=== PATIENT | female | born 1940 | race Caucasian/White ===

== ENCOUNTER 2017-02-21 00:46 | Inpatient (IN) | payer OTHER, MEDICARE ==
[~2017-02-21] VITALS: Ht 165.1 cm; Wt 95.3 kg
[2017-02-21] VITALS (7 sets, daily range): BP systolic 148–199; BP diastolic 79–93
--- NOTE | ~2017-02-21 | EKG ---
[address] [place] [address] ELECTROCARDIOGRAM REPORT Name: EVGENYROMI DELL Room #: 463- ADM IN M.R.#: [id number] Admission: 02/21/17 Attend Phys: Andrei Espinal MD Discharge: Date of : 42 Report #: [id number] THIS REPORT FOR: //name// [facility] ED Test Date: 2017-02-21 Test Time: 01:22:52 Pat Name: ROMI PEPPER Department: Room: 463 Gender: F Foot Specialist: jerod : 1940 Requested By: Nan Summers Order Number: [id number] MD: Leandro Pritchett Measurements Intervals [place] Rate: 52 P: 24 NV: 174 QRS: -7 QRSD: 96 T: 7 QT: 433 QTc: 403 Interpretive Statements Sinus rhythm Borderline T wave abnormalities Baseline wander in lead(s) I,III,aVL,aVF Compared to ECG 11/27/2014 14:45:19 no significant changes Electronically Signed On 02-21-2017 12:57:54 CDT by Leandro Pritchett [email or web address] <ELECTRONICALLY SIGNED> By: Leandro Pritchett MD, [facility] 02/21/17 1257 0122 0122 Leandro Pritchett MD, [facility] /EPI
--- NOTE | ~2017-02-21 | HC ---
[facility] [place] [address] CONSULTATION Name: ROMI PEPPER Room #: 463-P [facility] IN M.R.#: [id number] Admission: 02/21/17 Attend Phys: Boris Owens DO Discharge: Date of : 42 Report #: [id number] THIS REPORT FOR: //name// CC: Ananth Owens DATE OF SERVICE: 02/22/2017 HISTORY OF PRESENT ILLNESS: The patient is a 76-year-old white female who was admitted with mental status changes. She was found on the floor by her . She has had a CT scan with suspected left occipital stroke. Admission diagnosis is acute to subacute CVA. MRI of the brain is pending. We are seeing her in rehabilitation medicine consultation. PAST MEDICAL HISTORY: Includes insulin-dependent diabetes mellitus; COPD, 3 liters premorbidly, although she notes she does not like to take it; gastric bypass; hysterectomy; lumbar diskectomy with fusion; hypertension; atrial fibrillation; migraines; dyslipidemia; osteoarthritis; stents to the circumflex in 2010; stent to the LAD 02/11/2013; frequent falls 2012; left total knee replacement 11/21/2013; fibromyalgia. ALLERGIES: CODEINE, IODINE, MORPHINE, PENICILLIN. HABITS: No history of tobacco or ETOH abuse. SOCIAL HISTORY: Lives at home with her spouse. 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 Noted to be on 2-3 liters nasal prong O2 at home, although she is not on oxygen here currently. She has an O2 sat of 95% actually on room air. REVIEW OF SYSTEMS: Did not offer any current complaints of chest pain, shortness of breath or abdominal discomfort. No focal complaints of extremity pain. Denied any focal weakness per se. PHYSICAL EXAMINATION: GENERAL: A 76-year-old obese white female in no obvious distress. VITAL SIGNS: Last recorded temperature 98, pulse 71, respirations 22, and blood pressure 144/70. NEUROLOGIC: She is alert, rather cantankerous. Facies appeared to be symmetric. She may have some left upper and lower extremity coordination difficulties compared to the right. Strength is probably a grade 4 to 4-/5 both upper and lower extremities. Tone appeared to be intact. There is some definite slowing as far as her cognitive processing, and I questioned her safety judgment and insight. [address] [address] CONSULTATION Name: ROMI PEPPERJana Room #: 463-P [facility] IN .R.#: [id number] Admission: 02/21/17 Attend Phys: Boris Owens DO Discharge: Date of : 42 Report #: [id number] ASSESSMENT: A 76-year-old white female with the following problem list: 1. Mental status change with CT scans suspicious for a left occipital stroke. Stroke workup underway with Neurology involvement. 2. Dyslipidemia. 3. Insulin-dependent diabetes mellitus. 4. Obesity with prior gastric bypass. 5. Chronic obstructive pulmonary disease. 6. Hypertension. 7. Atrial fibrillation. 8. Lumbar diskectomy with fusion. 9. Stent to LAD. 10. Prior history of frequent falls. 11. Prior left total knee replacement in 2013. PLAN: Neuro workup is underway. Therapy evaluations are underway. We will be glad to follow along with you regarding her rehab therapy needs. <ELECTRONICALLY SIGNED> By: Gregorio Barajas MD 02/23/17 1523 1139 2207 Gregorio Barajas MD /nt
--- NOTE | ~2017-02-21 | EEG ---
[facility] [place] [address] ELECTROENCEPHALOGRAM Name: ROMI PEPPER Room #: 463-P ADM IN M.R.#: [id number] Admission: 02/21/17 Attend Phys: Boris Owens DO Discharge: Date of : 42 Report #: [id number] THIS REPORT FOR: //name// CC: Ananth Owens DATE OF SERVICE: 02/22/2017 This patient is being evaluated for altered mental status. EEG was done by placing the electrodes by standard 10-20 system of electrode placement. Both referential and sequential montages were used for recording. Background activity in this patient's EEG is about 10 Hz and 30-40 microvolt. The patient does become drowsy that is associated with bilateral slowing. This patient's EEG demonstrated pretty significant epileptiform activity arising from the left cerebral hemisphere. It does not have the regularity of the periodic lateralized epileptiform discharges. Photic stimulation is unremarkable. IMPRESSION: This is a significantly abnormal EEG, which demonstrated pronounced epileptiform activity arising from the left cerebral hemisphere. This patient should be urgently worked up to determine any etiology for the seizures arising from the left cerebral hemisphere and appropriately treated as clinically indicated. Finding was conveyed to , the neurologist covering this patient who will arrange this workup urgently. Thank you very much for this referral. By: 1804 1854 MD kaitlin Austin
[~2017-02-21 00:46] MED LIST: ACETAMINOPHEN325 M1 PO; ADULT LOW DOSE81 MG PO; ADVAIR HFA 1112 UNIT INH; ALLOPURINOL 10100 M1 PO; ASPIRIN325 PO; ATORVASTATIN CA40 MG PO; B12INJ SUBQ; CARDIZEM CD 18180 M3 PO; CARDIZEM CD180 MG PO; CIPROFLOXACIN250 M2 PO; COUMADIN 1MG TAB1 M1 PO; DEMADEX20 MG PO; DOCUSATE SODIU100 MG PO; DUONEB 2.5-0.5 M3 ML INH; EFFIENT10 MG PO; EFFIENT5 MG PO; FIORINAL 50-321 EACH PO; FIORINAL CAPSUL1 CA1 PO; HYDROCODON-ACE1 EAC7 PO; IRON325 PO; LANTUS SC; LEVEMIR SUBQ; MEDROL DOSPAK21 TA1 PO; MICONAZOLE NITR45 GM VAG; NITROGLYCERIN1 EAC1 TRANSDERM; NITROSTAT0.4 MG PO; NORCO 10-325 T1 EACH PO; NORCO 7.5-3251 EACH PO; NOVOLOG100 UNIT/1 SUBQ; PACERONE 200 M200 M1 PO; PRAVASTATIN SOD20 MG PO; PRINIVIL10 MG PO; PRINZIDE 20-251 EACH PO; SENNA-LAX8.6 MG PO; SPIRIVA INH; ULTRAM 50MG TAB50 MG PO; VALIUM2 MG PO; VALIUM5 MG PO; VICODIN; XARELTO15 MG PO; ZOFRAN4 MG PO
[2017-02-21 01:35] LABS: URINE BILIRUBIN NEGATIVE (Negative); URINE BLOOD TRACE (Negative); URINE COLOR YELLOW; URINE GLUCOSE-RANDOM* NEGATIVE (Negative); URINE KETONES TRACE (Negative); URINE LEUKOCYTES-REFLEX NEGATIVE (Negative); URINE PROTEIN (DIPSTICK) NEGATIVE (Negative); URINE UROBILINOGEN 0.2 E.U./dl (0.2-1.0)
[2017-02-21 01:39] LABS: ABSOLUTE NEUTROPHILS 9.8 thou/uL (1.4-8.2); BASOPHILS 0.4 % (0.0-2.0); EOSINOPHILS 0.1 % (0.0-3.0); HEMATOCRIT 42.8 % (37.0-47.0); HEMOGLOBIN 14.4 gm/dL (12.0-15.0); LYMPHOCYTES 10.1 % (24.0-44.0); MANUAL DIFF NO; MCH 30.4 pg (26.0-34.0); MCHC 33.7 g/dL (28.0-37.0); MCV 90.3 fL (80.0-100.0); PLATELET COUNT 166 thou/uL (150-400); POLYS 85.4 % (36.0-66.0); RBC 4.73 mil/uL (4.20-5.00); RDW 13.9 % (10.5-14.5); WBC 11.4 thou/uL (4.0-11.0)
[2017-02-21 01:40] LABS: CALCIUM 9.1 mg/dL (8.5-10.1); CREATININE 0.9 mg/dL (0.6-1.0); POTASSIUM 3.6 mmol/L (3.5-5.1)
[2017-02-21 01:43] LABS: ABG COMMENT ROOM AIR; ABG SAMPLE TYPE ARTERIAL; BE(vivo) 2.2 mmol/L (-2 to +3); HCO3 25.6 mmol/L (22.0-26.0); LACTATE 1.65 mmol/L (0.5-2.0); O2(CT) 19.7 mL/dL (15.0-23.0); O2Hb 94.6 % (92.0-98.0); PO2 75.4 mmHg (80.0-100.0); STICK SITE R.RADIAL; pH 7.469 (7.360-7.450); sO2 95.9 % (92.0-98.0); tCO2 26.7 mmol/L (24.0-30.0)
[2017-02-21 02:30] LABS: APTT 25.7 Seconds (24.5-32.8); INR 1.1; PROTIME 11.3 Seconds (9.3-11.4)
[2017-02-21 05:36] LABS: CHOLESTEROL 226 mg/dL (<200); HDL CHOLESTEROL 48 mg/dL (>40); LDL CHOLESTEROL 146 mg/dL (<100); TC:HDL 4.7 Ratio (Not establshd); TRIGLYCERIDE 160 mg/dL (<150); VLDL 32 mg/dL (<40)
[2017-02-21 05:43] LABS: SERUM ASSESSMENT Clear
[2017-02-21 22:32] LABS: TSH 1.102 uIU/mL (0.358-3.740)
[2017-02-22 03:15] VITALS: BP 115/101
[2017-02-22 03:52] LABS: HEMATOCRIT 43.7 % (37.0-47.0); MCH 30.8 pg (26.0-34.0); MCHC 34.3 g/dL (28.0-37.0); MCV 89.9 fL (80.0-100.0); RBC 4.86 mil/uL (4.20-5.00); WBC 10.4 thou/uL (4.0-11.0)
[2017-02-22 04:17] LABS: CALCIUM 8.9 mg/dL (8.5-10.1); MAGNESIUM 1.7 mg/dL (1.8-2.4)
[2017-02-22 04:29] LABS: POTASSIUM 2.9 mmol/L (3.5-5.1)
[2017-02-22 07:29] VITALS: BP 144/70
[2017-02-22 12:05] VITALS: BP 138/80
[2017-02-22 16:11] LABS: MAGNESIUM 1.9 mg/dL (1.8-2.4); POTASSIUM 3.9 mmol/L (3.5-5.1)
[2017-02-22 16:54] VITALS: BP 150/56
[2017-02-22 19:12] LABS: GLYCOHEMOGLOBIN (HGB A1C) 5.1 % (4.8-5.6)
[2017-02-22 20:32] VITALS: BP 161/100
[2017-02-22 23:18] VITALS: BP 146/88
[2017-02-23] VITALS (7 sets, daily range): BP systolic 110–177; BP diastolic 74–85
[2017-02-23] MEDS ORDERED: CLOPIDOGREL75 MG PO (13:18)
[2017-02-23] MEDS ORDERED: KEPPRA 500 MG500 M1 PO (13:18)
[2017-02-25 01:11] LABS: ALPHA TOCOPHEROL 13.1 mg/L (6.5-21.5)
== END 2017-02-23 15:48 | disposition home health service (06) | DRG 64 ==
LOC: ER 00:46 → EROBS 03:49 → 4W 03:49
PROVIDERS: Emergency Medicine; Family Medicine; Nurse Practitioner; Psychiatry & Neurology Neurology
DX: I63.9 Cerebral infarction, unspecified (principal); G92 Toxic encephalopathy; I16.1 Hypertensive emergency; J44.9 Chronic obstructive pulmonary disease, unspecified; I10 Essential (primary) hypertension; G43.909 Migraine, unspecified, not intractable, without status migrainosus; I48.91 Unspecified atrial fibrillation; E78.5 Hyperlipidemia, unspecified; M19.90 Unspecified osteoarthritis, unspecified site; Z96.652 Presence of left artificial knee joint; I25.10 Atherosclerotic heart disease of native coronary artery without angina pectoris; E11.42 Type 2 diabetes mellitus with diabetic polyneuropathy; Z77.22 Contact with and (suspected) exposure to environmental tobacco smoke (acute) (chronic); M10.9 Gout, unspecified; M79.7 Fibromyalgia; R26.81 Unsteadiness on feet; E66.9 Obesity, unspecified; R56.9 Unspecified convulsions; R53.81 Other malaise; Z88.8 Allergy status to other drugs, medicaments and biological substances; Z88.0 Allergy status to penicillin; Z98.84 Bariatric surgery status; Z90.710 Acquired absence of both cervix and uterus; Z95.5 Presence of coronary angioplasty implant and graft; Z68.34 Body mass index [BMI] 34.0-34.9, adult; Z88.6 Allergy status to analgesic agent; Z91.041 Radiographic dye allergy status
CPT/HCPCS: 10045

== ENCOUNTER 2019-12-11 13:25 | Inpatient (IN) | payer OTHER, MEDICARE ==
[~2019-12-11] VITALS: Ht 160 cm; Wt 77.1 kg
--- NOTE | ~2019-12-11 | HC ---
[facility] [place] [address] CONSULTATION Name: ROMI PEPPER Room #: 454-P [facility] IN M.R.#: [id number] Admission: 12/11/19 Attend Phys: Donnell Leung MD Discharge: 12/22/19 Date of : 42 Report #: [id number] THIS REPORT FOR: cc: Ananth Tapia MD,Dion Artis MD DO ~ CC: Ananth Leung DATE OF SERVICE: 12/22/2019 PALLIATIVE CARE CONSULTATION REQUESTING PHYSICIAN: Dr. Lopez. CHIEF COMPLAINT: Delirium. HISTORY OF PRESENT ILLNESS: The patient is a 79-year-old female who presented initially with altered mental status, delirium, severe spinal stenosis, subsequently found with radicular symptoms. She had a T12 compression fracture, which is likely a significant origin of this. This compression fracture is not amenable to surgery. Unfortunately, the patient has reported initially that she has wanted to go home. We recommended through therapy that she had some sort of rehab due to her decision making process. There was a possibility that she might be interested in palliative care type option. PAST MEDICAL HISTORY: T12 compression fracture, chronic cerebral infarcts, chronic hypoxic respiratory failure, COPD, type 2 diabetes, hypertension. FAMILY HISTORY: Noncontributory. ALLERGIES: PENICILLIN, IODINE, MORPHINE, CODEINE. MEDICATIONS: Lantus, gabapentin, dexamethasone, Humalog, [place], Lipitor, heparin, potassium, lisinopril, Cardizem, Plavix, aspirin, amiodarone, allopurinol, Keppra. SOCIAL HISTORY: Living at home alone; however, she reports significant support from neighbors including neighbors that helped her to clean her home and cook for her as well. REVIEW OF SYSTEMS: GENERAL: She denies fevers or chills. RESPIRATORY: Denies shortness of breath currently. CARDIOVASCULAR: Denies chest pain. MUSCULOSKELETAL: Does report back pain, which is her most significant problem, [facility] [address] [place] [address] CONSULTATION Name: [facility]: [facility]-P [facility] IN M.R.#: [id number] Admission: 12/11/19 Attend Phys: Donnell Leung MD Discharge: 12/22/19 Date of : 42 Report #: [id number] although pain is minimal at rest currently. PHYSICAL EXAMINATION: VITAL SIGNS: Temperature 36.3, pulse 63, respirations 16, blood pressure 147/62. GENERAL: The patient appears to be alert. She is oriented to 3. She is in no acute distress. HEENT: Extraocular muscles appear to be intact. Normocephalic and atraumatic. No scleral icterus. No conjunctival injection noted. CARDIOVASCULAR: Appears to be regular rate and rhythm. No significant edema. RESPIRATORY: No tachypnea, no wheezing appreciated. No respiratory distress. ABDOMEN: No distention. ASSESSMENT AND PLAN: 1. T12 compression fracture with this and her concern for repeat fall, there is a concern that the patient may not be safe for home setting; however, she understands the potential barriers to home placement. She additionally understands the risks of home placement. The patient is significantly favoring going home despite these knowledge of these risks. She is amenable to having home health, but however, not amenable to a skilled therapy either inpatient or outpatient. Unfortunately, despite encouragement, patient is currently sticking with this plan. She is not interested in palliative care options at this time, not interested in changing her code status. 2. Delirium, appears to be improved overall on this. 3. Spinal stenosis. Appreciate Neurosurgery input on this. Thank you very much for this consultation. Please consult me again if I can be of any assistance with regards to this patient's care. By: 1616 1816 Dion Cruz DO /nt
[~2019-12-11 13:25] MED LIST changes: +CLOPIDOGREL75 MG PO; +KEPPRA 500 MG500 M1 PO
[2019-12-11 13:26] VITALS: BP 173/66
[2019-12-11 13:45] LABS: ABSOLUTE NEUTROPHILS 4.2 thou/uL (1.4-8.2); BASOPHILS 0.3 % (0.0-2.0); EOSINOPHILS 0.6 % (0.0-3.0); HEMATOCRIT 40.7 % (37.0-47.0); HEMOGLOBIN 13.4 gm/dL (12.0-15.0); LYMPHOCYTES 23.3 % (24.0-44.0); MCH 31.2 pg (26.0-34.0); MCHC 32.9 g/dL (28.0-37.0); MCV 94.8 fL (80.0-100.0); MONOCYTES 6.5 % (1.0-8.0); PLATELET COUNT 170 thou/uL (150-400); POLYS 69.3 % (36.0-66.0); RDW 14.2 % (10.5-14.5); WBC 6.1 thou/uL (4.0-11.0)
[2019-12-11 13:52] LABS: ANION GAP 11 mmol/L (7-16); BUN 16 mg/dL (7-18); CALCIUM 8.4 mg/dL (8.5-10.1); CHLORIDE 109 mmol/L (98-107); CO2 22 mmol/L (21-32); GLUCOSE 79 mg/dL (74-106); SODIUM 142 mmol/L (136-145)
[2019-12-11 14:02] LABS: ALBUMIN 3.2 g/dL (3.4-5.0); SGOT 20 U/L (15-37); SGPT 10 U/L (30-65); TOTAL BILIRUBIN 0.7 mg/dL (<0.1-1.0); TOTAL PROTEIN 6.3 g/dL (6.4-8.2); TROPONIN-I <0.06 ng/mL (<0.06)
[2019-12-11 14:04] LABS: POTASSIUM 2.9 mmol/L (3.5-5.1)
[2019-12-11 14:12] LABS: URINE BLOOD 1+ (Negative); URINE CLARITY CLOUDY; URINE COLOR YELLOW; URINE GLUCOSE-RANDOM* NEGATIVE (Negative); URINE KETONES 1+ (Negative); URINE PROTEIN (DIPSTICK) 1+ (Negative); URINE SPECIFIC GRAVITY >= 1.030 (1.005-1.035)
[2019-12-11 14:13] LABS: ICTOTEST (BILI CONFIRMATORY) Negative (Negative); URINE BILIRUBIN NEGATIVE (Negative); URINE LEUKOCYTES-REFLEX 1+ (Negative); URINE NITRITE-REFLEX POSITIVE (Negative)
[2019-12-11 14:40] LABS: BACTERIA-REFLEX >30 Many /HPF (None Seen); SQUAMOUS 0-3 Few /LPF (0-3); URINE RBC 3-10 Few /HPF (0-2); URINE WBC-REFLEX >25 Many /HPF (0-5)
[2019-12-11 14:41] LABS: CASTS None Seen /LPF (None Seen); CRYSTALS None Seen /LPF (None Seen)
[2019-12-11 18:14] LABS: MAGNESIUM 1.8 mg/dL (1.8-2.4)
[2019-12-11 18:36] VITALS: BP 131/53
[2019-12-12 00:04] VITALS: BP 104/77
--- NOTE | 2019-12-12 04:27 | NUR ---
PT WAS AN ER ADMIT AT SHIFT CHANGE. NO FAMILY AT BEDSIDE. PT WAS ADMITTED A RESULT OF FALL, AND ALSO NOTED TO HAVE UTI. PT IS ALERT, BUT FORGETFUL AND CONFUSED. ADMISSION ASSESSMENT AND EDUCATION COMPLETED WITH PATIENT.SHE WAS ABLE TO ANSWER A FEW QUESTIONS. HYPOGYLCEMIA NOTED UPON ADMISSION. FALL PRECAUTION IN PLACE. CALL LIGHT WITHIN REACH. SCHEDULED MEDS ADMINISTERED TO PT. PT TOLERATED PO INTAKE. PT COMPLIANS OF A HEADACHE. CONTINUE TO MONITOR PATIENT.
[2019-12-12 04:38] VITALS: BP 125/60
--- NOTE | 2019-12-12 08:20 | EKG ---
[facility] [place] [address] ELECTROCARDIOGRAM REPORT Name: ROMI PEPPER Room #: 454-P ADM IN M.R.#: [id number] Admission: 12/11/19 Attend Phys: Donnell Leung MD Discharge: Date of : 42 Report #: [id number] THIS REPORT FOR: cc: Ananth Tapia MD, Eric K. MD Couchonnal, Luis F. 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 : 1940 Requested By: Nona Hawkins Order Number: [id number] MD: Pepito Cisneros Measurements Intervals [place] Rate: 48 P: 64 [place]: 172 QRS: -21 QRSD: 120 T: 9 QT: 543 QTc: 486 Interpretive Statements Sinus bradycardia Multiple ventricular premature complexes Probable left ventricular hypertrophy Borderline T abnormalities, anterior leads Compared to ECG 02/21/2017 01:22:52 Ventricular premature complex(es) now present Sinus rhythm no longer present T-wave abnormality still present Electronically Signed On 12-12-2019 8:18:44 BOILER RELINER by Pepito Cisneros [email or web address] <ELECTRONICALLY SIGNED> By: Pepito Cisneros MD 12/12/19 0818 1339 1339 Pepito Cisneros MD /EPI
[2019-12-12 08:30] VITALS: BP 150/64
[2019-12-12 15:30] VITALS: BP 133/76
[2019-12-12 16:42] LABS: CALCIUM 8.2 mg/dL (8.5-10.1); CREATININE 1.1 mg/dL (0.6-1.0)
[2019-12-12 16:45] LABS: POTASSIUM 2.7 mmol/L (3.5-5.1)
--- NOTE | 2019-12-12 16:53 | NUR ---
INITIAL ASSESSMENT: Received consult. PIERRE reviewed chart and spoke with nursing and attending physician. Pt was admitted from home after a fall. Pt's family found her down in her home. Pt was transferred to from [facility] earlier today. PIERRE met with pt at bedside. Introduced role of SW. Pt is alert/orientated to self only. Pt unable to state name of hospital. Per pt, she lives at home alone. Pt states she has home health workers that come in to see her throughout the day. Pt reports that she has a cane, walker and scooter at home. Per chart, pt has been to [facility] in the past. Pt unable to recall if she has been in rehab or SNF in the past. Pt's PCP is Dr. Ananth Tapia. SW asked to contact her family to provide update. Pt requested PIERRE to call her dtr in law, Mabel. PIERRE left voice message for Mabel ([phone]). Therapies are ordered to evaluate pt for discharge needs. Pt would most likely benefit from post-acute care. PIERRE is following to assist as needed with discharge planning.
[2019-12-12 19:37] VITALS: BP 116/59
--- NOTE | 2019-12-12 20:13 | NUR ---
Received patient from [facility], transferred to bed safely. High risk for falls- falls bundle in place. A+Ox2, on seizure precaution. Complained of pain, due PRN pain medication given as prescribed. Vital signs stable. With SL on L AC- intact and flushing well. On blood sugar monitoring taken and recorded accordingly. No family member at the bedside, as per previous nurse, forms needs to be signed by DPOA. Able to use the bedside commode with standby assist and gait belt. Assisted in eating and drinking. Able to sit out on the chair during the day shift. Pt with critical value of potassium this afternoon of 2.7, Dr Leung informed and orders obtained for 20meq KCL PO now then at 2200 then BID starting tomorrow- orders placed. Pt's son called for update- given; they said that pt's insurance card and license were not returned to them during transport of EMT or admission, informed her that pt got transferred this AM from [facility] and there were no report for the ID cards, informed her that I try to check her IDs if time permits- bonderizer nurse informed re: IDs- will try to look for it. CM seen patient and assessed her this afternoon re: placement of home needs. To continue monitoring patient.
--- NOTE | 2019-12-13 03:02 | NUR ---
PROGRESS PT ALERT BUT CONFUSED. C/O PAIN TO BACK ARMS AND HEAD, BRUISING NOTED TO LOWER BACK ARMS AND SHOULDERS. NO OPEN AREAS NOTED REMAINDER OF SKIN IS C/D/I. SALINE LOCK TO LAC FLUSHES WITHOUT DIFFICULTY. UP WITH 1 GB AND WALKER. ACCUCHECKS AND SSI CONTINUE. POTASSIUM 2.7 THIS AM 20 MEQ'S ORDERED BID GIVEN ORDERED. WEARS 3 LITERS O2 PRN SATS AT 96% ON ROOM AIR. TAKING TRAMADOL PRN FOR C/O LOWER BACK PAIN. CONTINUE TO MONITOR.
[2019-12-13 05:34] LABS: HEMATOCRIT 36.1 % (37.0-47.0); HEMOGLOBIN 11.9 gm/dL (12.0-15.0); MCH 31.1 pg (26.0-34.0); MCHC 32.9 g/dL (28.0-37.0); MCV 94.4 fL (80.0-100.0); RBC 3.83 mil/uL (4.20-5.00); RDW 14.9 % (10.5-14.5); WBC 5.4 thou/uL (4.0-11.0)
[2019-12-13 06:16] LABS: CALCIUM 8.2 mg/dL (8.5-10.1); CREATININE 0.9 mg/dL (0.6-1.0); MAGNESIUM 1.8 mg/dL (1.8-2.4)
[2019-12-13 07:35] VITALS: BP 137/73
[2019-12-13 14:55] VITALS: BP 136/67
--- NOTE | 2019-12-13 16:33 | NUR ---
CM CALLED AND FOLLOWED UP WITH PT'S DTR IN LAW [facility]. SHE INDICATED THAT PT HAD BEEN LIVING ALONE IN A HOUSE BILLET HEATER. SHE STATED THAT PT HAS ALL REPORTED DME BUT THAT SHE HADN'T USED IT CONSISTANTLY BILLET HEATER. SHE INDICATED THAT PT DOESN'T HAVE CAREGIVERS WHO CHECK ON HER DAILY THAT JUST SHE AND HER SPOUSE DO. SHE STATED THAT PT'S SPOUSE PASSED LAST . SHE HAD INDICATED THAT PT HAD UTI LIKE THIS 3 YEARS AGO AND THAT PT'S CONFUSION CLEARED. CM SPOKE WITH THEM ABOUT [facility] ACUTE INPATIENT REHAB. DTR IN LAW INDICATED THAT THEIR GOAL WOULD BE FOR PT TO CLEAR AND BE ABLE TO RETURN HOME WITH HH SERVICES AND INCREASED FAM SUPPORT FROM SON, DTR IN LAW, AND GSON. CM TO FOLLOW INDICATED WITH DC PLANNING.
--- NOTE | 2019-12-13 16:46 | NUR ---
PT ALERT AND ORIENTED TIMES THREE WITH SOME CONFUSION. VSS. PT C/O BACK PAIN PRN MEDICATIONS GIVEN WITH SOME RELEIF. PT TOLERATES MEDS AND MEALS. PT UP WITH STAND BY ASSSIT. PT SLOWLY PROGRESSING TOWRADS POC GOALS.
[2019-12-13 20:07] VITALS: BP 133/71
--- NOTE | 2019-12-14 04:30 | NUR ---
PROGRESS PT ALERT AND AWAKE. CONFUSED AND TALKING TO PEOPLE WHO ARE NOT THERE, ATTEMPTED TO REORIENT AND SHE BECAME ANGRY. VSS, UP WITH 1 AND A WALKER TO BSC. VOIDING QS. VSS SKIN, CLEAN, DRY, AND, INTACT. ACCUCHECKS AND SSI CONTINUE. PT HAS A GOOD APPETITE AND ADEQUATE PO INTAKE. AWAITING SNF PLACEMENT.
[2019-12-14 07:45] VITALS: BP 128/82
--- NOTE | 2019-12-14 10:26 | NUR ---
Received awake, sitting on chair. On room air- saturating on 99%. Vital signs stable. A+O to self, pt confused, re-oriented from time to time and gets angry if re-oriented. On carb controlled diet- tolerating well, encouraged to eat and drink- no nausea, no vomiting and no abdominal pain noted. On blood sugar monitoring- taken and recorded accordingly. With SL at L AC- intact and wrapped with Cob[place]. Complained of pain, due PRN pain medications given as prescribed. Pt cried this morning saying that her son and daughter in law does not know where she is- informed pt that they are both aware that she is in the hospital and which room number she is in, they have been calling pt and nurse for updates- pt calmed down. Falls bundle in place. Assisted in ADLs.
--- NOTE | 2019-12-14 16:49 | NUR ---
CM FOLLOWED UP WITH PT'S DTR IN LAW AND INDICATED THAT PT HAS BEEN REFUSING THERAPIES. SHE INIDCATED TO CARE TEAM THAT THEY WERE INTERESTED IN ACUTE REHAB STAY BUT THAT [facility] WOULDN'T BE ABLE TO ACCEPT PT IF SHE DOESN'T PARTICIPATES AND ISN'T WILLING TO DO THERPIES. SHE WAS AWARE AND UNDERSTANDING THAT PT WOULD HAVE TO DC HOME WITH HH IF SHE WON'T PARTICIAPTE. CM TO FOLLOW INDICATED WITH DC PLANNING.
[2019-12-14 16:58] VITALS: BP 153/97
[2019-12-14 19:15] VITALS: BP 101/57
[2019-12-14 22:46] LABS: URINE BILIRUBIN NEGATIVE (Negative); URINE BLOOD NEGATIVE (Negative); URINE CLARITY CLEAR; URINE COLOR YELLOW; URINE GLUCOSE-RANDOM* NEGATIVE (Negative); URINE KETONES NEGATIVE (Negative); URINE LEUKOCYTES-REFLEX NEGATIVE (Negative); URINE NITRITE-REFLEX NEGATIVE (Negative); URINE PROTEIN (DIPSTICK) NEGATIVE (Negative); URINE SPECIFIC GRAVITY 1.025 (1.005-1.035); URINE UROBILINOGEN 0.2 E.U./dl (0.2-1.0)
--- NOTE | 2019-12-15 02:42 | NUR ---
Assumed pt care @191. pt a&ox2. confused and forgetful. pt refused all night times meds and accu check. pt has been sleeping well with only bathroom interruptions where she will go right back to sleep after. 1 assist with a walker to the bathroom. UA collected and pt is negative for the uti. no major concerns overnight. v/s stable. no s/s of distress. will cont to monitor
[2019-12-15 06:40] LABS: ABSOLUTE NEUTROPHILS 3.6 thou/uL (1.4-8.2); BASOPHILS 0.2 % (0.0-2.0); EOSINOPHILS 2.1 % (0.0-3.0); HEMATOCRIT 37.9 % (37.0-47.0); HEMOGLOBIN 12.3 gm/dL (12.0-15.0); LYMPHOCYTES 24.6 % (24.0-44.0); MCH 30.9 pg (26.0-34.0); MCHC 32.6 g/dL (28.0-37.0); MCV 94.7 fL (80.0-100.0); MONOCYTES 4.7 % (1.0-8.0); PLATELET COUNT 164 thou/uL (150-400); POLYS 68.4 % (36.0-66.0); RDW 14.9 % (10.5-14.5); WBC 5.3 thou/uL (4.0-11.0)
[2019-12-15 06:57] LABS: CALCIUM 8.9 mg/dL (8.5-10.1); MAGNESIUM 1.7 mg/dL (1.8-2.4); PHOSPHORUS 3.2 mg/dL (2.5-4.9); POTASSIUM 4.1 mmol/L (3.5-5.1)
[2019-12-15 07:35] VITALS: BP 141/74
--- NOTE | 2019-12-15 13:19 | NUR ---
PATIENTINFORMATION REVIEWED WITH DR. BRUCE. SKILLED RECOMMENDED FOR D/C LOCATION IF PATIENT DOES NOT HAVE NEEDED SUPERVISION/ASSISTANCE TO RETURN TO HOME SAFELY. PEBBLE MILL OPERATOR INFORMED. THANK YOU FOR THIS REFERRAL.
--- NOTE | 2019-12-15 15:01 | NUR ---
Received awake on bed. Due medications given as prescribed, able to swallow meds w/o difficulty. On room air. Vital signs stable. A+O to self only, pt re-oriented from time to time, but easily gets upset. On carb controlled diet- encourage, assisted in eating and drinking, offered snacks. On blood sugar monitoring- taken and recorded accordingly; insulin coverage omiited since pt has been having low blood sugars and not eating much. With SL at L AC- intact and flushing well. Complained of pain, due PRN pain meds given as prescribed. Pt participated in physical therapy, able to walk around the sawant. Assisted in ADLs. Pt's son called, update given.
--- NOTE | 2019-12-15 17:08 | NUR ---
IF PT MEDICALLY STABLE TO DC OVER WEEKEND FAX REFERAL TO [facility] FOR PT OT ST AND NURSING . FAMILY ARE AWARE THAT PT HADN'T BEEN AGREEABLE WITH THERAPY.
[2019-12-15 19:47] VITALS: BP 125/66
--- NOTE | 2019-12-16 05:12 | NUR ---
Pt. rested quietly at intervals during the night when checked on during frequent rounds. She is alert and oriented to self and situation. Pt. c/o back pain and was given po pain med (see emar) with some relief noted. Ambulates to the bathroom with walker and stand by assistance. Bed alarm is on.
[2019-12-16 06:14] LABS: ABSOLUTE NEUTROPHILS 2.8 thou/uL (1.4-8.2); BASOPHILS 0.3 % (0.0-2.0); EOSINOPHILS 3.1 % (0.0-3.0); HEMATOCRIT 35.8 % (37.0-47.0); HEMOGLOBIN 11.7 gm/dL (12.0-15.0); MCHC 32.8 g/dL (28.0-37.0); MCV 94.5 fL (80.0-100.0); MONOCYTES 6.4 % (1.0-8.0); PLATELET COUNT 159 thou/uL (150-400); POLYS 61.2 % (36.0-66.0); RBC 3.79 mil/uL (4.20-5.00); WBC 4.7 thou/uL (4.0-11.0)
[2019-12-16 06:44] LABS: ALBUMIN 2.6 g/dL (3.4-5.0); CALCIUM 8.9 mg/dL (8.5-10.1); MAGNESIUM 2.2 mg/dL (1.8-2.4); PHOSPHORUS 3.2 mg/dL (2.5-4.9); POTASSIUM 4.5 mmol/L (3.5-5.1); TOTAL BILIRUBIN 0.3 mg/dL (<0.1-1.0); TOTAL PROTEIN 5.5 g/dL (6.4-8.2)
[2019-12-16 07:52] VITALS: BP 140/76
[2019-12-16 09:00] VITALS: BP 140/76
--- NOTE | 2019-12-16 13:48 | NUR ---
Received awake on bed. Due medications given as prescribed, able to swallow meds w/o difficulty. A+O to self, re-oriented from time to time. On carb controlled diet- encouraged to eat and drink; no nausea, no vomiting and no abdominal pain noted. On blood sugar monitoring, taken and recorded accordingly; with insulin prescribed- omitted since patient has been having low blood sugars. Assisted in ADLs. With D5NS infusing at 50cc/hr, infusing well on her L AC. Pt complained of pain, due PRN pain meds given as prescribed. With consult to Neuro- US called in consult, pt seen by Dr Arrington- MRI ordered, checklist to be accomplished. Able to go to the toilet using walker and gait belt. To continue monitoring patient.
[2019-12-16 19:16] VITALS: BP 109/55
--- NOTE | 2019-12-17 04:46 | NUR ---
Pt. rested quietly at intervals during the night when checked on during frequent rounds. She c/o generalized pain and po pain med (see emar) given with some relief noted. Up to the bathroom with assistance of one and walker. Bed alarm is on.
[2019-12-17 07:30] VITALS: BP 133/74
[2019-12-17 14:18] LABS: ABSOLUTE NEUTROPHILS 4.1 thou/uL (1.4-8.2); BASOPHILS 0.3 % (0.0-2.0); EOSINOPHILS 2.7 % (0.0-3.0); HEMATOCRIT 41.1 % (37.0-47.0); HEMOGLOBIN 13.4 gm/dL (12.0-15.0); LYMPHOCYTES 24.2 % (24.0-44.0); MCH 31.1 pg (26.0-34.0); MCHC 32.7 g/dL (28.0-37.0); MONOCYTES 5.4 % (1.0-8.0); PLATELET COUNT 179 thou/uL (150-400); POLYS 67.4 % (36.0-66.0); RBC 4.32 mil/uL (4.20-5.00); RDW 14.9 % (10.5-14.5)
[2019-12-17 14:33] LABS: ALBUMIN 2.9 g/dL (3.4-5.0); CREATININE 1.1 mg/dL (0.6-1.0); MAGNESIUM 1.8 mg/dL (1.8-2.4); POTASSIUM 4.3 mmol/L (3.5-5.1); TOTAL BILIRUBIN 0.4 mg/dL (<0.1-1.0); TOTAL PROTEIN 6.2 g/dL (6.4-8.2)
[2019-12-17 15:35] VITALS: BP 133/77
--- NOTE | 2019-12-17 20:41 | NUR ---
Assumed patient care at 0715. Vital signs have been stable. Insulin held for Breakfast, as she did not eat enough. Insulin given after she consumed most of her lunch, had [place] Lay Ira Soda (regular). Blood Sugar 60 at 1649. Patient given 10% Dextrose 100cc/hr per Protocol. Blood Uhoma286 at 1945. Patient is alert to self. She has been verbally aggressive, confused throughout the entire shift. She has been assisted to the toilet x's three. At 1552 she was given Tramadol 50mg po for back pain, level eight. This medication was effective. Patient called Daughter in Law on phone, stating that she needed help. Daughter in Law called back frantic. This nurse explained that patient was confused, that she has been receiving "good care." Daughter in Law is aware that patient can be verbally aggressive, apologized for her Mother in Law's Behavior. POC followed. Report given to on-coming nurse.
[2019-12-17 20:52] VITALS: BP 135/82
--- NOTE | 2019-12-18 04:41 | NUR ---
ASSUMED PT CARE AROUND 1930. AXOX1, CAN BE HOSTILE AT TIME WITH CONFUSION. INSULIN GLARGINE WAS HELD FOR EPISODE OF HYPOGLYCEMIA RAMEZ, DISCUSSED WITH ANJU PAVON ABOUT REGARDING HOLDING THE GLARGINE. PT REPORTED ULE PAIN AND STIFFNESS AND EDEMA NOTED. WILL NOT ALLOW STAFF TO TOUCH LUE AND BECOMES VERY HOSTILE WHEN ATTEMPTED TO EVALUATE PT. MEDICATED PT FOR PAIN AND REPORTED S/S TO ANJU MUÑOZ SUPERVISOR STITCHING DEPARTMENT FOR . NEW ORDERS RECIEVED. ATTEMPTED TO TAKE OUT IV ON LUE AND PT BECAME VERY UPSET. ALSO DID NOT ALLOW NEW LINE PLACEMENT ON LUE. WITH NUMERICAL CONTROL PROGRAMMER AT BEDSIDE, PT REPORTED THAT SHE FALLEN ON HER LEFT SIDE AND PAIN HAS BEEN GOING ON FOR A WEEK NOW. NO S/S ACUTE DISTRESS NOTED OR REPORTED AT THIS TIME. WILL CONT TO MONITOR FOR ANY CHANGES IN CONDITION.
[2019-12-18 07:28] VITALS: BP 143/69
--- NOTE | 2019-12-18 08:29 | NUR ---
PATIENT HAS REFUSED OT EVAL 4 TIMES. A NEW ORDER IS NEEDED IF STATUS CHANGES FOR ANOTHER OT EVAL.
--- NOTE | 2019-12-18 11:43 | NUR ---
Nutrition: Assessed for LOS. Admit: low back pain after fall, UTI, toxic metabolic encephalopathy (now resolved). Hx: chronic pain syndrome, DM II, COPD, HTN, paroxysmal a fib. Per notes, pt continues to have weakness in LE. CT shows severe lumbar spinal stenosis. Pt refusing MRI. Is on a carb controlled diet w/ mechanically altered/chopped food, no straws or mixed consistencies per MEDICAL LOGISTICS SPECIALIST. Pt didn't display any overt s/s of aspiration, but had mild-moderate dysphagia. 50% meal average overall per last 18 meals x6 days since 12/12. Recent BM 12/16. Had been requiring D5 IVFs to avoid hypoglycemia. IVFs dc'ed 12/17 to see how pt responded. Only 1 episode of 60 mg/dl yesterday; remaining BGs 80-133 mg/dl. Pt noted to be hostile, verbally aggressive at times. RD woke pt up this a.m. for brief interview. Reports eating pretty normal amounts at her baseline. EMR does not pt confusion, so unsure of if pt reliable. She declined menu modifications, declined any added protein foods or need for oral nutrition supplements. Encouraged her to prioritize entrees and protein foods first for higher kcals. Keep as low nutrition risk for now given 50% meal average in older age and all interventions declined.
[2019-12-18 16:58] VITALS: BP 154/83
--- NOTE | 2019-12-18 19:25 | NUR ---
Alert and oriented to person. MRI head done; Call [phone] and [phone] ,trying to ask Dr. Ashton if he wanted to have MRI spine done, left a voice mail. the night nurse is aware of it.
[2019-12-18 19:45] VITALS: BP 104/59
--- NOTE | 2019-12-19 02:44 | NUR ---
CARE ASSUMED AT 1900 PATIENT WAS IN BED ASLEEP. PATIENT AOX3 MAKES NEEDS KNOWN. NO CONFUSION OR FORGETFULNESS NOTED THIS SHIFT.PATIENT IS CALM AND COOPERATIVE WITH CARE AND MEDS. PATIENT AMBULATES SLOWLY TO THE BATHROOM WITH STEADY GAITS. PAIN CONTROLLED THIS SHIFT. PATIENT IN BED ASLEEP AT THIS TIME BREATHING REGULAR AND UNLABOURED.
[2019-12-19 07:50] VITALS: BP 106/55
--- NOTE | 2019-12-19 13:29 | NUR ---
DISCHARGE PLANNING. PLAN IS FOR DISCHARGE TO HOME WITH HOME [facility]ALTH [facility]CES. PATIENT REFERRAL FAXED TO [facility] PER REQUEST. CALL PLACED TO [facility] TO NOTIFY OF REFERRAL. AWAITING RESPONSE.
--- NOTE | 2019-12-19 15:13 | HC ---
[facility] [place] [address] CONSULTATION Name: ROMI PEPPER Room #: 454-P ADM IN M.R.#: [id number] Admission: 12/11/19 Attend Phys: Donnell Leung MD Discharge: Date of : 44 Report #: [id number] THIS REPORT FOR: cc: Ananth Tapia MD, Eric K. MD Smithson, David G. MD ~ CC: Ananth Leung DATE OF SERVICE: 12/13/2019 HISTORY OF PRESENT ILLNESS: The patient is a 79-year-old white female who had a fall on 12/10/2019, unable to stand, was noted to have generalized weakness with mental status changes and toxic metabolic encephalopathy. She had hypokalemia with a potassium of 2.7. She has chronic pain syndrome. She was noted to have the urinary tract infection along with the critical hypokalemia, which is being replaced. She has been started on antibiotics for the urinary tract infection and being monitored regarding her toxic metabolic encephalopathy. We are seeing her in rehabilitation medicine consultation. PAST MEDICAL HISTORY: Includes insulin-dependent diabetes mellitus, COPD, lumbar diskectomy with fusion, hypertension, atrial fibrillation, migraines, dyslipidemia, stent to LAD, frequent falls, left knee replacement, fibromyalgia. MEDICATIONS: Please see the full medication listing. ALLERGIES: CODEINE, IODINE, MORPHINE, PENICILLIN. SOCIAL HISTORY: Lives in a house alone, one step. Premorbid cane versus walker ambulator. She also has a scooter at home/power wheelchair. It sounds like she typically was a furniture walker. There is a son that lives a couple of blocks away and a grandson that checks in on her. She also notes that there is a neighbor lady across the street that stays with her at times, brings her food, takes a doctor's appointments. REVIEW OF SYSTEMS: No current complaints of chest pain, shortness of breath or abdominal discomfort. PHYSICAL EXAMINATION: GENERAL: A 79-year-old white female in no obvious distress. VITAL SIGNS: Last recorded temperature 97.9, pulse 65, respirations 18, blood pressure 137/73. HEENT: The patient is alert. Facies are symmetric. She thought she was at [facility]. She is rather tangential with her speech. She does follow basic [address] [address] CONSULTATION Name: [facility]PPER [facility] #: 454-P [facility] IN M.R.#: [id number] Admission: 12/11/19 Attend Phys: Donnell Leung MD Discharge: Date of : 42 Report #: [id number] EXTREMITIES: She has functional range of motion of the upper extremity, strength is probably a grade 4-/5. Lower extremities, no focal calf swelling, functional range of motion, strength is probably a grade 3+ to 4-/5. She was mod assist sit to stand. Gait was min assist, contact guard 25 feet with a roller walker. ASSESSMENT: A 79-year-old white female with the following problem list: 1. Toxic metabolic encephalopathy. 2. Gait instability with multiple falls. 3. Critical hypokalemia. 4. Urinary tract infection. 5. Chronic hypoxic respiratory failure, appears improved. She is on room air. 6. History of fibromyalgia. 7. Chronic pain syndrome. PLAN: Therapies are continuing to work with regarding her functional mobility and ADLs. We would like to see how she does with further therapies. She may be a candidate for a short acute inpatient rehabilitation stay, but I am uncertain if she would agree with this and participate. It would be nice to know how much family and whether this neighbor lady across the street could further assist her when she is ready to return back to the home setting. At this point, we will follow along with you and see how she does in therapies. Thank you for asking us to assist in this patient's care. <ELECTRONICALLY SIGNED> By: Gregorio Barajas MD 12/19/19 1513 1111 1413 Gregorio Barajas MD /[facility] [place]
[2019-12-19 15:53] VITALS: BP 103/54
--- NOTE | 2019-12-19 16:04 | NUR ---
CARE TEAM INDICATED THAT PT IS TO HAVE MRI OF SPINE TODAY. PT STILL REFUSING OT. PT AND ST RECOMMENDING THAT PT HAVE 24/ SUPERVISON UPON DC FOR DECREASED SAFTEY AWARENESS. REFERRAL SENT TO MICHEAL SANCHEZ CM TO FOLLOW INDICATED WITH DC PLANNING.
[2019-12-19 19:13] VITALS: BP 118/68
--- NOTE | 2019-12-19 20:16 | NUR ---
Assumed pt care this am, VS stable. Pt would refuse some medication on occassion stating she will refuse. Pt went down for an MRI. NO insuling given, pt would be in the 80's for blood sugar. Diet and medications are tolerated well. Pain is managed with medication. Pt is only alert x 2 and would get confused through out the day. Pt also refused working with OT and would forget limitations. POC followed no sings or verbalizations of distress noted.
--- NOTE | 2019-12-20 04:36 | NUR ---
ASSUMED PT CARE AROUND 1930. AXOX2. VSS. NO S/S ACUTE DISTRESS NOTED OR REPORTED AT THIS TIME. WILL CONT TO MONITOR FOR ANY CHANGES IN CONDITION.
[2019-12-20 16:03] VITALS: BP 144/67
--- NOTE | 2019-12-20 16:15 | NUR ---
Assumed patient care at 0715. Patient continues to be confused, needs frequent reminders. She has not displayed any mood swings during this shift. Vital signs have been stable. Dr Lopez changed Insulin Orders. Patient is no longer on scheduled Lispro. Instead, she is on Lispro Sliding Scale AC and HS. Long Acting Insulin has been discontinued. Dr Lopez also gave orders for Hydrocodone 5/325mg po q 4 hours prn. Patient pulled out IV in right hand. IV in left anticubital had been bent, was not working either. IV membership correspondent placed new IV in left forearm. Will continue to monitor.
--- NOTE | 2019-12-20 16:29 | NUR ---
PT SEEN BY NEUROLOGIST TODAY AND HE INDICATED THAT PT SEEMED CLEARED AND HAD INDICATED THAT SHE WOULD BE AGREEABLE WITH 7 DAY POST ACUTE CARE STAY SOMEWHERE. NEUROSURGERY SAW PT AND INDICATED THAT SHE ELECTED NO SURGICAL INTERVENTION INTERVETNION. CM CALLED AND SPOKE WITH SON/DPOA. HE STATED THAT HE DIDN'T AGREE THAT PT WOULD NEED 24/7 SUPERVISON DUE TO SAFTEY DEFICITS. HE INDICATED THAT HE WOULD BE RECEPTIVE TO SHORT TERM POST ACUTE CARE STAY AND OR HOME HEALTH UPON DC. HE STATED THAT HE WOULD COME BY TOMORROW AM AND WOULD DISCUSS WITH PT. CM INDICATED CM WOULD FOLLOW UP WITH THEM IN THE AM TO DISCUSS OPTIONS.
[2019-12-20 19:44] VITALS: BP 128/65
--- NOTE | 2019-12-21 04:22 | NUR ---
ASSUMED PT CARE AROUND 1914. AXOX4. BLADDER SCAN COMPLETED AND RESIDUAL WAS 154CC. STRAIGHT CATH WAS NOT INDICATED AND PT INFORMED. PAIN MEDS GIVEN PER MD ORDER. NO S/S ACUTE DISTERSS NOTED OR REPORTED AT THIS TIME. WILL CONT TO MONITOR FOR ANY CHANGES IN CONDITION.
[2019-12-21 08:08] VITALS: BP 143/74
[2019-12-21] MEDS ORDERED: HYDROCODON-ACE1 EAC7 PO (11:31)
[2019-12-21] MEDS ORDERED: GABAPENTIN 100100 MG PO (11:31)
[2019-12-21] MEDS ORDERED: DEXAMETHASONE 44 M1 PO (11:39)
[2019-12-21] MEDS ORDERED: NOVOLOG100 UNIT/1 SUBQ (11:39)
[2019-12-21] MEDS ORDERED: LEVEMIR100 UNIT/2 SUBQ (11:39)
[2019-12-21 12:37] LABS: CALCIUM 9.2 mg/dL (8.5-10.1); POTASSIUM 4.2 mmol/L (3.5-5.1)
--- NOTE | 2019-12-21 16:46 | NUR ---
CM SPOKE WITH PT'S SON AGAIN THIS AFTERNOON AND HE INDICATED THAT HE ISN'T RECEPTIVE TO PT GOING TO OUTSIDE FACILITY FOR SHORT TERM POST ACUTE CARE STAY THIS TIME. WOULD BE RECEPTIVE TO 5N IF THEY CAN ACCEPT. INDICATED THAT THEY WOULD TRY TO CONVINCE PT TO PARTICIPATE IN THERAPY. SPOKE ABOUT PUTTING CAMERAS IN HER HOME TO CHECK ON HER. SPENCER ASKED IF CM COULD SEND REFERRALS TO SOME POST ACUTE CARE FACILITIES AND HE STATED THAT CM COULDN'T. HE AND SPOUSE WILL VISIT THIS EVENING.
[2019-12-21 19:21] VITALS: BP 136/65
--- NOTE | 2019-12-21 20:06 | NUR ---
Assumed patient care at 0715. Vital signs have been stable. Sliding scale Insulin held due to poor food and fluid intake. IV fluids running at 75cc per hour. Patient has been educated per physicians/Dr Lopez that she is not safe to return home without 24 hour care. Son and [id number]-ory notified of this per Dr Lopze. Patient has been angry since, verbally threatening to "turn all of you in!" She has been trying to get out of bed by herself to use the restroom. Staff has caught her in time to assist her. She "wobbles" at times and is a fall risk. Ckilppat-ap-yly and son came to visit this evening; informed this nurse and [facility] shift nurse that they are taking patient back home to live by herself and that they are "making some changes" to her home.
--- NOTE | 2019-12-21 22:56 | NUR ---
Assumed care of the pt. at 1900 until 2300. She is alert and oriented to self. Up to the bathroom with assitance of one,gait belt and walker. She c/o generalized pain and was given po pain med (see emar) with some relief noted. Bed alarm is on.
--- NOTE | 2019-12-22 02:34 | NUR ---
care assumed at 2300. patient was in bed asleep no s/s of pain or discomfort. fall precaution in place. patient in bed asleep at this time breathing regular and unlaboured.
[2019-12-22 08:03] VITALS: BP 147/62
[2019-12-22 13:24] VITALS: BP 147/62
[2019-12-22 16:10] VITALS: BP 147/62
--- NOTE | 2019-12-22 16:15 | NUR ---
CM SPOKE WITH DTR IN LAW AND SHE INDICATED THAT THEY DON'T TRUST THE RECOMENDATION THAT PT NEEDS 24/7 SUPERVISION UPON DC THAT THEY DON'T THINK THAT PT HAS ANY COGNITIVE IMPAIRMENT. THEY ARE ADAMANT THAT THEY WANT TO TAKE PT HOME AND WILL SEEK A SECOND OPINION. HOME HEALTH SERVICES HAVE BEEN SET UP THROUGH [facility]. FAMILY TO PROVIDE TRANSPORT HOME THIS EVENINIG AROUND 1630. NO OTHER CM INTERVENTION INDICATED. CASE CLOSED.
--- NOTE | 2019-12-22 17:27 | NUR ---
Assumed pt care this am, VS stable. Pt is still confused and would forget, pt refused to continue IV therapy. POC followed no signs or verbalization of distress have been noted. IV removed. Dc instructions and precsriptions given to the son and daughter in law. Pt is now dc.
== END 2019-12-22 17:17 | disposition home health service (06) | DRG 551 ==
LOC: ER 13:25 → 4W 16:01 → EROBS 16:01 → 3W 16:01 → 4W 12-12 07:59 → ENTRNSPT 12-22 17:07 → 4W 12-22 17:17
PROVIDERS: Hospitalist; Internal Medicine; Nurse Practitioner Family; ADMIT Internal Medicine
DX: S22.088A Other fracture of T11-T12 vertebra, initial encounter for closed fracture (principal); G92 Toxic encephalopathy; S32.028A Other fracture of second lumbar vertebra, initial encounter for closed fracture; N39.0 Urinary tract infection, site not specified; J96.11 Chronic respiratory failure with hypoxia; M48.00 Spinal stenosis, site unspecified; E87.6 Hypokalemia; I48.91 Unspecified atrial fibrillation; J44.9 Chronic obstructive pulmonary disease, unspecified; I10 Essential (primary) hypertension; E11.9 Type 2 diabetes mellitus without complications; G43.909 Migraine, unspecified, not intractable, without status migrainosus; I87.2 Venous insufficiency (chronic) (peripheral); E78.5 Hyperlipidemia, unspecified; M19.90 Unspecified osteoarthritis, unspecified site; R29.6 Repeated falls; Z96.652 Presence of left artificial knee joint; M79.7 Fibromyalgia; G89.4 Chronic pain syndrome; W18.39XA Other fall on same level, initial encounter; F32.9 Major depressive disorder, single episode, unspecified; I48.0 Paroxysmal atrial fibrillation; G47.00 Insomnia, unspecified; G31.84 Mild cognitive impairment of uncertain or unknown etiology; B96.20 Unspecified Escherichia coli [E. coli] as the cause of diseases classified elsewhere; Z95.5 Presence of coronary angioplasty implant and graft; Z79.01 Long term (current) use of anticoagulants; Z89.512 Acquired absence of left leg below knee; Z99.81 Dependence on supplemental oxygen; Z98.84 Bariatric surgery status; Z90.710 Acquired absence of both cervix and uterus; Z98.1 Arthrodesis status; Z79.82 Long term (current) use of aspirin; Y93.89 Activity, other specified; Z91.048 Other nonmedicinal substance allergy status; Y92.89 Other specified places as the place of occurrence of the external cause; Z79.899 Other long term (current) drug therapy; Z91.041 Radiographic dye allergy status; Y99.8 Other external cause status; Z88.5 Allergy status to narcotic agent; Z88.0 Allergy status to penicillin; Z88.8 Allergy status to other drugs, medicaments and biological substances
CPT/HCPCS: 10047; 10080

== ENCOUNTER 2020-06-14 01:52 | Inpatient (IN) | payer OTHER, MEDICARE ==
[2020-06-14] VITALS (8 sets, daily range): BP systolic 92–139; BP diastolic 57–72
[~2020-06-14] VITALS: Ht 165.1 cm; Wt 70.3 kg
[~2020-06-14 01:52] MED LIST changes: +DEXAMETHASONE 44 M1 PO; +GABAPENTIN 100100 MG PO; +LEVEMIR100 UNIT/2 SUBQ
[2020-06-14] MEDS ORDERED: BUTALBIT-ACETA1 EACH PO (02:15)
[2020-06-14] MEDS ORDERED: DIAZEPAM 5 MG5 M1 PO (02:16)
[2020-06-14] MEDS ORDERED: FUROSEMIDE 40 M40 MG PO (02:17)
[2020-06-14] MEDS ORDERED: INDOMETHACIN 2525 MG PO (02:18)
[2020-06-14] MEDS ORDERED: SOTALOL80 MG PO (02:19)
[2020-06-14] MEDS ORDERED: DEPAKOTE ER500 M1 PO (02:21)
[2020-06-14] MEDS ORDERED: AMBIEN5 MG PO (02:22)
[2020-06-14] MEDS ORDERED: NITROSTAT0.4 M1 SUBLING (02:34)
[2020-06-14 02:49] LABS: ABSOLUTE NEUTROPHILS 2.9 thou/uL (1.4-8.2); BASOPHILS 0.4 % (0.0-2.0); CALCIUM 8.5 mg/dL (8.5-10.1); CREATININE 1.6 mg/dL (0.6-1.0); EOSINOPHILS 0.6 % (0.0-3.0); HEMATOCRIT 36.3 % (37.0-47.0); HEMOGLOBIN 12.2 gm/dL (12.0-15.0); LYMPHOCYTES 30.7 % (24.0-44.0); MCH 31.9 pg (26.0-34.0); MCHC 33.5 g/dL (28.0-37.0); MCV 95.5 fL (80.0-100.0); MONOCYTES 9.7 % (1.0-8.0); PLATELET COUNT 112 thou/uL (150-400); POLYS 58.6 % (36.0-66.0); POTASSIUM 3.4 mmol/L (3.5-5.1); RBC 3.81 mil/uL (4.20-5.00); RDW 13.5 % (10.5-14.5); WBC 4.9 thou/uL (4.0-11.0)
[2020-06-14 02:52] LABS: URINE BILIRUBIN NEGATIVE (Negative); URINE BLOOD NEGATIVE (Negative); URINE CLARITY CLEAR; URINE COLOR YELLOW; URINE GLUCOSE-RANDOM* NEGATIVE (Negative); URINE KETONES NEGATIVE (Negative); URINE NITRITE-REFLEX NEGATIVE (Negative); URINE PROTEIN (DIPSTICK) NEGATIVE (Negative); URINE SPECIFIC GRAVITY 1.015 (1.005-1.035); URINE UROBILINOGEN 0.2 E.U./dl (0.2-1.0)
[2020-06-14 02:53] LABS: URINE LEUKOCYTES-REFLEX 1+ (Negative)
[2020-06-14 02:55] LABS: ALBUMIN 3.1 g/dL (3.4-5.0); TOTAL BILIRUBIN 0.3 mg/dL (0.2-1.0); TOTAL PROTEIN 5.7 g/dL (6.4-8.2)
[2020-06-14 02:59] LABS: HYALINE CASTS 0-3 Few /LPF (None Seen); MUCUS 0-3 Light strn/LPF (None Seen)
[2020-06-14 03:00] LABS: URINE WBC-REFLEX 6-15 Few /HPF (0-5)
[2020-06-14 03:01] LABS: CRYSTALS None Seen /LPF (None Seen); SQUAMOUS 0-3 Few /LPF (0-3); URINE RBC 0-2 Rare /HPF (0-2)
--- NOTE | 2020-06-14 06:39 | NUR ---
PT NEW ADMIT THIS AM ST POST FALL AT HOME. PT STATE SHE WAS READING THE BIBLE WHEN SHE FELL. REPORTS USING A CANE, WALKER WHILE AT HOME. ALL ASSESSEMENTS DOCUMENTED. PT COMDATIVE THIS AM, REFUSED NS AND HER MORNING MEDS YELLING, " YOU WANT TO KILL ME, LIKE YOU KILLED MY ..WANTS TO GO HOME " PT THREATENING TO LEAVE AMA. NO C/O CHEST PAIN OR NAUSEA AT THIS TIME. WILL CONTINUE WITH POC
--- NOTE | 2020-06-14 08:51 | EKG ---
[facility] [place] [address] ELECTROCARDIOGRAM REPORT Name: ROMI PEPPER Room #: 218-P ADM IN M.R.#: [id number] Admission: 06/14/20 Attend Phys: Juanjose Jorge MD Discharge: Date of : 42 Report #: [id number] THIS REPORT FOR: cc: NO FAMILY PHYSICIAN or PCP NO FAMILY PHYSICIAN or PCP Leandro Pritchett MD [facility] THIS REPORT FOR: //name// [facility] ED Test Date: 2020-06-14 Test Time: 02:27:55 Pat Name: ROMI PEPPER Department: Room: 218 Gender: F Safety Trainer: Melvin : 1940 Requested By: Owen Hartman Order Number: [id number] MD: Leandro Pritchett Measurements Intervals [place] Rate: 45 P: 52 MS: 172 QRS: -16 QRSD: 106 T: 39 QT: 499 QTc: 432 Interpretive Statements Sinus bradycardia Borderline left axis deviation Borderline T wave abnormalities Compared to ECG 12/11/2019 13:39:53 Ventricular premature complex(es) no longer present Electronically Signed On 06-14-2020 8:50:56 CDT by Leandro Pritchett [email or web address] <ELECTRONICALLY SIGNED> By: Leandro Pritchett MD, [facility] 06/14/20 0850 0227 Leandro Pritchett MD, [facility] /EPI
--- NOTE | 2020-06-14 12:36 | 2DMMODE ---
[facility] [address] [place] [address] 2 D/M-MODE ECHOCARDIOGRAM Name: ROMI PEPPER Room #: 218-P ADM IN M.R.#: [id number] Admission: 06/14/20 Attend Phys: Juanjose Jorge MD Discharge: Date of : 42 Report #: [id number] THIS REPORT FOR: cc: NO FAMILY PHYSICIAN or PCP NO FAMILY PHYSICIAN or PCP Parveen Okeefe MD ~ APPROVED REPORT Study performed: 06/14/2020 11:17:56 EXAM: Comprehensive 2D, Doppler, and color-flow Echocardiogram Patient Location: Bedside Room #: 218 Status: routine BSA: 1.77 HR: 38 bpm BP: 133/72 mmHg Rhythm: Bradycardia Other Information Study Quality: Good Indications COPD Diabetes Bradycardia CAD Hypertension/HDD 2D Dimensions RVDd: 32.72 mm IVSd: 12.47 (7-11mm) LVOT Diam: 19.97 (18-24mm) LVDd: 50.40 mm PWd: 9.68 (7-11mm) Ascending Ao: 28.42 (22-36mm) LVDs: 33.31 (25-40mm) Aortic Root: 32.90 mm IVC: 17.00 mm Volumes Left Atrial Volume (Systole) Single Plane 4CH: 55.74 mL Single Plane 2CH: 64.16 mL LA ESV Index: 38.00 mL/m2 Aortic Valve [facility] [address] [place] [address] 2 D/M-MODE ECHOCARDIOGRAM Name: ROMI PEPPER FRANK Room #: 218-P [facility] IN ..#: [id number] Admission: 06/14/20 Attend Phys: Juanjose Jorge, Discharge: Date of : 42 Report #: [id number] AoV Peak Celestine.: 1.21 m/s AO Peak Gr.: 5.85 mmHg LVOT Max P.31 mmHg LVOT Max V: 0.91 m/s MOLLY Vmax: 2.36 cm2 Mitral Valve E/A Ratio: 1.6 MV Decel. Time: 168.92 ms MV E Max Celestine.: 0.92 m/s MV A Celestine.: 0.58 m/s MV PHT: 48.99 ms IVRT: 106.11 ms Pulmonary Valve PV Peak Celestine.: 0.85 m/s PV Peak Gr.: 2.90 mmHg Pulmonary Vein P Vein S: 0.51 m/s P Vein A: 0.21 m/s P Vein D: 0.45 m/s P Vein A Dur.: 101.5 msec P Vein S/D Ratio: 1.13 Tricuspid Valve TR Peak Celestine.: 2.48 m/s TR Peak Gr.: 24.65 mmHg PA Pressure: 30.00 mmHg Left Ventricle The left ventricle is normal size. Mild concentric left ventricular hypertrophy. The left ventricular systolic function is normal. The left ventricular ejection fraction is within the normal range. LVEF is 55-60%. The left ventricular diastolic function is abnormal. Right Ventricle The right ventricle is normal size. The right ventricular systolic function is normal. Atria Left atrium is dilated. Right atrium is dilated. Aortic Valve The aortic valve is normal in structure. The Aortic valve is sclerotic. Trace aortic regurgitation. There is no aortic valvular stenosis. Mitral Valve [facility] [address] [place] [address] 2 D/M-MODE ECHOCARDIOGRAM Name: [facility] PEPPER [facility] Room #: 218-P ADM IN M.R.#: [id number] Admission: 06/14/20 Attend Phys: Juanjose Jorge, Discharge: Date of : 42 Report #: [id number] The mitral valve is normal in structure. Moderate mitral regurgitation. No evidence of mitral valve stenosis. Tricuspid Valve The tricuspid valve is normal in structure. There is mild tricuspid regurgitation. Estimated PAP 30 mmHg. There is no pulmonary hypertension. Pulmonic Valve The pulmonary valve is normal in structure. There is no pulmonic valvular regurgitation. Great Vessels The aortic root is normal in size. IVC is normal in size and collapses >50% with inspiration. Pericardium There is no pericardial effusion. <Conclusion> The left ventricle is normal size. LVEF is 55-60%. Mild concentric left ventricular hypertrophy. Left atrium is dilated. Right atrium is dilated. The aortic valve is normal in structure. The Aortic valve is sclerotic. Trace aortic regurgitation. The mitral valve is normal in structure. Moderate mitral regurgitation. The tricuspid valve is normal in structure. There is mild tricuspid regurgitation. Estimated PAP 30 mmHg. There is no pulmonary hypertension. There is no pericardial effusion. <ELECTRONICALLY SIGNED> By: Parveen Okeefe MD 06/14/20 1235 1235 1235 Parveen Okeefe MD /INF
--- NOTE | 2020-06-14 15:16 | NUR ---
PATIENT SEEN THIS DATE FOR REHAB CONSULT BY BALA RICHEY NP WITH DR. BRUCE. PATIENT IS NOT A CANDIDATE FOR ACUTE REHAB. SNF IS RECOMMENDED DISCHARGE LOCATON. PATIENT IS ADAMANT ABOUT GOING HOME. SOCICAL WORKER INFORMED. THANK YOU FOR THIS REFERRAL.
--- NOTE | 2020-06-14 17:02 | NUR ---
Case opened to follow for dc planning. Laundry Sorter visited with pt at bedside and with permission spoke with her dtr in law Mabel. Mabel also worked here at [facility] for 20+ years and familiar with some dc planning resources. Pt's dtr in law check on the pt daily and sets up her medications each morning. She does her grocery shopping and errands. Pt has only one son Arvin who is to Mabel. They both work and are not able to provide 24hr care. The pt has been adament that she will not move out of her home. She is ofen difficult and refuses assistance. Laundry Sorter talked with the pt regarding the rehab recommendations and she is not open to snf or rehab. She is willing to have HH f/u and denies an agency preference. She had [facility] in November but they will not accept her back. Referral faxed and called to [facility] and they can accept if dc'd home this weekend. MANPOWER DEVELOPMENT SPECIALIST MANAGER requested. Pt's dtr in law indicates that the pt's son does have dpoa for hc and finances if needed down the road. They are receptive to private duty agency listing and lifeline discussion. They are approaching a neighbor friend who does her housekeeping and check on her regularly if they can hire her to come over several times daily and help with adl's and iadl's. Encouragement given for family to stay with her for a few days at dc and get private duty support in place for early next week. Possible dc Wednesday or Wednesday. Cardiac w/u in progress. Pt has needed dme in place but often will not use a cane or a rwalker. Family is also considering putting a camera up inside the home so they can montior her better. Will follow.
--- NOTE | 2020-06-14 18:08 | NUR ---
ASSUMED CARE OF PT SHIFT CHANGE. ASSESSMENTS CHARTED. MEDS GIVEN PER DEC. PT ALERT TO SELF, PLACE, SITUATION, NOT SURE OF TIME. INCREASING LEVEL OF PAIN NOT RELIEVED BY TYLENOL. WAITING FOR RESPONSE FROM DR REGARDING OTHER PAIN MEDS. PT APPEARS AGITATED AT TIMES, WANTS TO GO HOME, BUT HAS BEEN COMLIANT WITH MEDS. LOW URINE OUTPUT, PT PREFERS SPRITE TO DRINK. CARDIOLOGY RECORDS RECEIVED FROM [facility] IN CHART. FAMILY HOPING FOR DISCHARGE ON WEDNESDAY SO THEY CAN MAKE ARRANGEMENTS FOR MORE CARE AT HOME FOR PT. WILL CONTINUE TO MONITOR AND FOLLOW POC.
[2020-06-15] VITALS (7 sets, daily range): BP systolic 133–149; BP diastolic 63–77
--- NOTE | 2020-06-15 02:48 | NUR ---
NO EVENTS OVERNIGHT. PT ALERT AND ORIENTED. VSS BUT SINUS MAVIS IN 40s MOST OF THE NIGHT. DENIES CHEST PAIN, NAUSEA OR VOMITING. ASSESSMENTS DOCUMENTED. WILL CONTINUE TO MONITOR.
[2020-06-15 05:33] LABS: ABSOLUTE NEUTROPHILS 1.9 thou/uL (1.4-8.2); BASOPHILS 0.4 % (0.0-2.0); EOSINOPHILS 0.9 % (0.0-3.0); HEMATOCRIT 30.5 % (37.0-47.0); LYMPHOCYTES 36.4 % (24.0-44.0); MCH 32.3 pg (26.0-34.0); MCHC 33.5 g/dL (28.0-37.0); MCV 96.3 fL (80.0-100.0); MONOCYTES 9.3 % (1.0-8.0); PLATELET COUNT 99 thou/uL (150-400); RBC 3.17 mil/uL (4.20-5.00); RDW 13.9 % (10.5-14.5); WBC 3.5 thou/uL (4.0-11.0)
[2020-06-15 05:43] LABS: CREATININE 1.3 mg/dL (0.6-1.0); POTASSIUM 4.1 mmol/L (3.5-5.1)
[2020-06-15 05:53] LABS: HEMOGLOBIN 10.2 gm/dL (12.0-15.0)
[2020-06-15 06:08] LABS: CHOLESTEROL 156 mg/dL (<200); HDL CHOLESTEROL 42 mg/dL (>40); LDL CHOLESTEROL 95 mg/dL (<100); TC:HDL 3.7 Ratio (Not establshd); TRIGLYCERIDE 98 mg/dL (<150); VLDL 20 mg/dL (<40)
--- NOTE | 2020-06-15 17:39 | NUR ---
PT CARE ASSUMED AT 0700. ASSESSMENTS CHARTED. MEDICATION CHARTED. PT OCCASIONALLY REFUSES POC GLUCOSE CHECKS; STATES THAT SHE DOESN'T DO IT AT HOME AND DOESN'T NEED IT HERE. SHE OFTEN CHANGES HER MIND. LAC 0.45% NS. PT HAS A LACERATION ABOVE HER LT EYE. POSSIBLE DISCHARGE ON WEDNESDAY.
[2020-06-16] VITALS (9 sets, daily range): BP systolic 141–177; BP diastolic 57–80
--- NOTE | 2020-06-16 04:11 | NUR ---
ASSUMED CARE 1899. PT ALERT AND ORIENTED X3. AROUND 1999, PT GOT TO USE THE BATHROOM AND ON HER WAY BACK TO THE BED STARTED HAVE CHEST PAIN. DESCRIBED TIGH, RATING 6/10. EKG SHOWED AFIB, HR IN 90s TO LOW 100s. INDUSTRIAL ENGINEERING ANALYST NOTIFIED PAIN COULD NOT BE ALLEVIATED WITH 2 ROUNDS OF NITRO. PAGED [address] MATTHEWS, GI COCKTAIL ORDERED. PT REFUSED TO DRINK THE GI COCKTAIL. AFTER A WHILE, THE CHEST PAIN WAS RESOLVING SLOWLY. PT REMAINED IN AFIB THE WHOLE NIGHT. CURRENTLY RESTING CHEST PAIN FREE, VITALS STABLE. WILL CONTINUE TO MONITOR. TROPONINS Q6 ORDERED WELL. INITIAL TROPONIN WAS NEGATIVE. NO OTHER CONCERNS CURRENTLY .
[2020-06-16 11:35] LABS: HEMATOCRIT 34.4 % (37.0-47.0); HEMOGLOBIN 11.7 gm/dL (12.0-15.0); MCH 32.2 pg (26.0-34.0); MCV 94.8 fL (80.0-100.0); RBC 3.63 mil/uL (4.20-5.00); RDW 13.7 % (10.5-14.5); WBC 5.5 thou/uL (4.0-11.0)
[2020-06-16 11:42] LABS: CALCIUM 8.6 mg/dL (8.5-10.1); MAGNESIUM 2.1 mg/dL (1.8-2.4); POTASSIUM 4.1 mmol/L (3.5-5.1)
--- NOTE | 2020-06-16 18:58 | NUR ---
PT CARE ASSUMED AT 0700. ASSESSMENTS CHARTED. MEDICATIONS CHARTED. PT EXPERIENCED N/V THIS AM WITH SMALL AMT OF EMESIS. ZOFRAN ADMINISTERED; N/V RESOLVED. BM TODAY; UTILIZING BSC.
[2020-06-17 03:40] VITALS: BP 160/90
[2020-06-17 06:06] LABS: HEMATOCRIT 35.3 % (37.0-47.0); HEMOGLOBIN 12.4 gm/dL (12.0-15.0); MCH 33.1 pg (26.0-34.0); MCV 94.6 fL (80.0-100.0); RBC 3.73 mil/uL (4.20-5.00); RDW 13.5 % (10.5-14.5); WBC 7.1 thou/uL (4.0-11.0)
[2020-06-17 06:08] LABS: CALCIUM 8.6 mg/dL (8.5-10.1); CREATININE 1.1 mg/dL (0.6-1.0); MAGNESIUM 1.9 mg/dL (1.8-2.4); POTASSIUM 3.9 mmol/L (3.5-5.1)
--- NOTE | 2020-06-17 07:52 | EKG ---
[facility] [place] [address] ELECTROCARDIOGRAM REPORT Name: ROMI PEPPER Room #: 218-P ADM IN M.R.#: [id number] Admission: 06/14/20 Attend Phys: Juanjose Jorge MD Discharge: Date of : 44 Report #: [id number] THIS REPORT FOR: cc: NO FAMILY PHYSICIAN or PCP NO FAMILY PHYSICIAN or PCP Leandro Pritchett MD [facility] ~ THIS REPORT FOR: //name// [facility] Test Date: 2020-06-14 Test Time: 10:17:19 Pat Name: ROMI PEPPER Department: Room: 218 Gender: F Documentation Manager: TUCKER : 1940 Requested By: Oneyda Guerrero Order Number: [id number] MD: Leandro Pritchett Measurements Intervals [place] Rate: 45 P: 80 TN: 189 QRS: 58 QRSD: 110 T: 50 QT: 504 QTc: 437 Interpretive Statements Sinus bradycardia Poor R wave progression Nonspecific T wave abnormality Compared to ECG 06/14/2020 02:27:55 No significant change was found Electronically Signed On 06-17-2020 7:52:15 CDT by Leandro Pritchett [email or web address] <ELECTRONICALLY SIGNED> By: Leandro Pritchett MD, [facility] 06/17/20 0752 1017 1017 Leandro Pritchett MD, [facility] /EPI
--- NOTE | 2020-06-17 08:01 | NUR ---
COMPLAIN OF NAUSEA,HEADACHE AND LEFT CHEST PAIN.NITRO GIVEN,HYDROCODONE AND ZOFRAN.PATIENT SLEPT.UP TO THE BEDSIDE COMMODE.POC CONTINUED.
[2020-06-17 08:30] VITALS: BP 147/73
--- NOTE | 2020-06-17 08:52 | EKG ---
[facility] [place] [address] ELECTROCARDIOGRAM REPORT Name: ROMI PEPPER Room #: 218-P ADM IN M.R.#: [id number] Admission: 06/14/20 Attend Phys: Juanjose Jorge MD Discharge: Date of : 44 Report #: [id number] THIS REPORT FOR: cc: NO FAMILY PHYSICIAN or PCP NO FAMILY PHYSICIAN or PCP Leandro Pritchett MD [facility] ~ THIS REPORT FOR: //name// [facility] Test Date: 2020-06-15 Test Time: 20:21:33 Pat Name: ROMI PEPPER Department: Room: 218 Gender: F Account Manager Trainee: AN01 : 1940 Requested By: Mandie Neff Order Number: [id number] MD: Leandro Pritchett Measurements Intervals [place] Rate: 123 P: TN: QRS: -45 QRSD: 103 T: 57 QT: 334 QTc: 478 Interpretive Statements Sinus rhythm with paroxysmal atrial fibrillation LAD, consider left anterior fascicular block Abnormal R-wave progression, late transition Compared to ECG 06/14/2020 10:17:19 Sinus bradycardia no longer present Electronically Signed On 06-17-2020 8:52:22 CDT by Leandro Pritchett [email or web address] <ELECTRONICALLY SIGNED> By: Leandro Pritchett MD, [facility] 06/17/20851 20 20 Leandro Pritchett MD, [facility] /EPI
[2020-06-17 12:00] VITALS: BP 127/101
[2020-06-17 16:00] VITALS: BP 143/73
--- NOTE | 2020-06-17 17:15 | NUR ---
ALERT. CANTANKEROUS. IN AND OUT OF AFIB PER TELE. ALTERNATELY ALLOWS AND REFUSES TREATMENTS. TROPONIN 0.19 NOTED. DENIES CP. FALL PRECAUTIONS IN PLACE.
[2020-06-17 19:22] VITALS: BP 178/100
[2020-06-18 00:45] VITALS: BP 153/118
[2020-06-18 04:45] VITALS: BP 153/92
[2020-06-18 05:38] LABS: HEMATOCRIT 36.8 % (37.0-47.0); HEMOGLOBIN 12.4 gm/dL (12.0-15.0); MCHC 33.7 g/dL (28.0-37.0); MCV 94.9 fL (80.0-100.0); RBC 3.88 mil/uL (4.20-5.00); RDW 13.9 % (10.5-14.5); WBC 6.4 thou/uL (4.0-11.0)
[2020-06-18 06:11] LABS: CREATININE 0.9 mg/dL (0.6-1.0)
--- NOTE | 2020-06-18 06:31 | NUR ---
PAIN FAIRLY CONTROLLED.HYDRALAZINE GIVEN FOR ELEVATED BP.DENIES NEEDS AT THIS TIME.POC CONTINUED.
[2020-06-18 07:30] VITALS: BP 161/81
[2020-06-18 11:45] VITALS: BP 150/86
--- NOTE | 2020-06-18 16:08 | NUR ---
Spoke with BAILEY Monroe. Dr Jorge sp with DIL as well. ST ceja noted. Dr Jorge discussed with family. They want to cont to take patient to home. They have hired neighbor to assist more. [facility] for HH care.
[2020-06-18 17:00] VITALS: BP 191/81
--- NOTE | 2020-06-18 18:57 | NUR ---
ASSUMED CARE OF PT AT SHIFT CHANGE. ASSESSMENTS CHARTED. MEDS GIVEN PER DEC. PT A&OX3, NOT SURE OF TIME. C/O PAIN TREATED WITH TYLENOL WITH PARTIAL RELIEF. PLAN TO DC HOME TOMORROW WITH HH. WILL CONTINUE TO MONITOR AND FOLLOW POC.
[2020-06-18 19:40] VITALS: BP 159/85
[2020-06-19 04:01] VITALS: BP 123/57
[2020-06-19 05:42] LABS: HEMATOCRIT 31.1 % (37.0-47.0); HEMOGLOBIN 10.7 gm/dL (12.0-15.0); MCH 32.6 pg (26.0-34.0); MCHC 34.3 g/dL (28.0-37.0); MCV 95.1 fL (80.0-100.0); RBC 3.27 mil/uL (4.20-5.00); RDW 13.8 % (10.5-14.5); WBC 4.8 thou/uL (4.0-11.0)
[2020-06-19 05:47] LABS: CALCIUM 8.5 mg/dL (8.5-10.1); CREATININE 0.8 mg/dL (0.6-1.0); POTASSIUM 3.6 mmol/L (3.5-5.1)
[2020-06-19 09:13] VITALS: BP 145/76
[2020-06-19 11:47] VITALS: BP 152/80
[2020-06-19] MEDS ORDERED: METOPROLOL SUCC25 M1 PO (13:56)
[2020-06-19 14:01] VITALS: BP 135/57
[2020-06-19 14:35] VITALS: BP 135/57
[2020-06-19 16:02] VITALS: BP 135/57
--- NOTE | 2020-06-19 16:03 | NUR ---
ASSUMED CARE OF PT AT SHIFT CHANGE. ASSESSMENTS CHARTED. MEDS GIVEN PER DEC. PT A&OX3, HAS DIFFICULTY WITH TIME. C/O PAIN TREATED WITH PO MEDS WITH PARTIAL RELIEF. VS STABLE. PT SBA. DISCHARGE ORDERS AND INSTRUCTIONS COMPLETE. IV AND TELE DC'D. PT WHEEL OUT BY DEVULCANIZER CHARGER WITH SON TO WAITING CAR.
--- NOTE | 2020-06-19 17:09 | NUR ---
FAXED DC ORDERS/SUMMARY TO [facility] SPOKE WITH BRITNEY IN INTAKE SHE RECEIVED ORDERS AND WILL CALL PT TO SET UP VISITS.
== END 2020-06-19 16:07 | disposition home health service (06) | DRG 689 ==
LOC: ER 01:52 → 2N 04:04 → EROBS 04:04 → 2N 04:52
PROVIDERS: Emergency Medicine; Nurse Practitioner; Nurse Practitioner Family; ADMIT Internal Medicine; ATTEND Internal Medicine
DX: N39.0 Urinary tract infection, site not specified (principal); N17.0 Acute kidney failure with tubular necrosis; S05.92XA Unspecified injury of left eye and orbit, initial encounter; E87.0 Hyperosmolality and hypernatremia; I48.20 Chronic atrial fibrillation, unspecified; E46 Unspecified protein-calorie malnutrition; J96.11 Chronic respiratory failure with hypoxia; W19.XXXA Unspecified fall, initial encounter; E86.0 Dehydration; E11.9 Type 2 diabetes mellitus without complications; G43.909 Migraine, unspecified, not intractable, without status migrainosus; M19.90 Unspecified osteoarthritis, unspecified site; S09.8XXA Other specified injuries of head, initial encounter; I95.9 Hypotension, unspecified; M79.7 Fibromyalgia; J44.9 Chronic obstructive pulmonary disease, unspecified; I48.0 Paroxysmal atrial fibrillation; I25.10 Atherosclerotic heart disease of native coronary artery without angina pectoris; E78.5 Hyperlipidemia, unspecified; E87.6 Hypokalemia; B96.1 Klebsiella pneumoniae [K. pneumoniae] as the cause of diseases classified elsewhere; F03.90 Unspecified dementia, unspecified severity, without behavioral disturbance, psychotic disturbance, mood disturbance, and anxiety; R53.81 Other malaise; I49.5 Sick sinus syndrome; Z60.2 Problems related to living alone; Z96.652 Presence of left artificial knee joint; Y93.89 Activity, other specified; Y92.89 Other specified places as the place of occurrence of the external cause; Y99.8 Other external cause status; Z98.84 Bariatric surgery status; Z90.710 Acquired absence of both cervix and uterus; Z98.1 Arthrodesis status; Z85.3 Personal history of malignant neoplasm of breast; Z79.4 Long term (current) use of insulin; Z79.899 Other long term (current) drug therapy; Z79.01 Long term (current) use of anticoagulants; Z88.5 Allergy status to narcotic agent; Z88.0 Allergy status to penicillin; Z88.8 Allergy status to other drugs, medicaments and biological substances; Z95.5 Presence of coronary angioplasty implant and graft; F41.9 Anxiety disorder, unspecified; R41.0 Disorientation, unspecified; G47.00 Insomnia, unspecified; E53.8 Deficiency of other specified B group vitamins; Z68.25 Body mass index [BMI] 25.0-25.9, adult; T50.2X5A Adverse effect of carbonic-anhydrase inhibitors, benzothiadiazides and other diuretics, initial encounter
CPT/HCPCS: 10081